=== PATIENT | female | born 1990 | race Two or more races ===

== ENCOUNTER 2018-02-09 19:36 | Emergency (ER) | payer OTHER ==
[2018-02-09 20:12] VITALS: BP 147/106; PULSE 73; TEMP 98.2; BMI 25.8
--- NOTE | 2018-02-09 20:19 | PDOC ---
Rapid Medical Evaluation Chief Complaint: [facility] Time Seen by Provider: 02/09/18 20:12 Medical Evaluation: Allergies Allergy/AdvReac Type Severity Reaction Status Date / Time No Known Allergies Allergy Verified 02/09/18 20:12 Vital Signs Temp Pulse Resp BP Pulse Ox 98.2 F 73 16 147/106 100 02/09/18 20:09 02/09/18 20:09 02/09/18 20:09 02/09/18 20:09 02/09/18 20:09 I have performed a brief in-person evaluation of this patient. The patient presents with a chief complaint of: here for a test. She did not take one at home. LMP was "sometime in December" Pertinent physical exam findings: none I have ordered the following: hcg Beta HCG - negative Patient given results and referral to [facility]. Pt instructed to return to the ER with any worsening or concerning symptoms. The patient verbalizes understanding of all instructions, has no further questions and is awaiting discharge. Discharge Disposition - Diagnosis test negative - Discharge Dispostion Disposition: HOME Condition at time of disposition: Good - Referrals Referrals: Annie Mohan [Primary Care Provider] - Hattie Ordaz MD [Staff Physician] - - Patient Instructions Additional Instructions: Discharge Instructions: -Your test was negative -Please follow up with Dr. Ordaz within 2 weeks for follow up - Post Discharge Activity
== END 2018-02-09 21:06 | disposition home or self-care (01) ==
LOC: JERFT 19:36
DX: Z32.02 Encounter for pregnancy test, result negative (principal)
CPT/HCPCS: 84703; 99281-25

== ENCOUNTER 2018-02-22 15:06 | Emergency (ER) | payer OTHER ==
[2018-02-22 15:15] VITALS: BP 165/96; PULSE 91; TEMP 98.6; BMI 26.6
--- NOTE | 2018-02-22 15:15 | PDOC ---
Rapid Medical Evaluation Time Seen by Provider: 02/22/18 15:10 Medical Evaluation: Allergies Allergy/AdvReac Type Severity Reaction Status Date / Time No Known Allergies Allergy Verified 02/09/18 20:12 02/22/18 15:11 I have performed a brief in-person evaluation of this patient. The patient presents with a chief complaint of: R pelvic w/ menses x 5 days ago , worse than usual menstrual cramps. . Currently off control after developed PE 3 months ago, no longer on AC per pt Pertinent physical exam findings:Stable w/ no sig ttp I have ordered the following:upreg/ua The patient will proceed to the ED for further evaluation 02/22/18 15:14 Discharge Disposition - Diagnosis Pelvic pain - Referrals - Patient Instructions - Post Discharge Activity
--- NOTE | 2018-02-22 15:50 | PDOC ---
History of Present Illness - General Chief Complaint: Pain Stated Complaint: RT SIDE PAIN Time Seen by Provider: 02/22/18 15:10 - History of Present Illness Initial Comments: 27-year-old female presents for evaluation of uterine cramping 2 days. She states she finished her period 2 days ago but she still begins to cramp. She has no comorbidities and takes no home medication. She has no other associated symptoms. 02/22/18 15:48 Past History - Past Medical History Allergies/Adverse Reactions: Allergies Allergy/AdvReac Type Severity Reaction Status Date / Time No Known Allergies Allergy Verified 02/22/18 15:12 Home Medications: Ambulatory Orders Nitrofurantoin Monohyd/M-Cryst [Macrobid -] 100 mg PO BID #14 capsule 02/22/18 Asthma: No Cancer: No Cardiac Disorders: No COPD: No Diabetes: No HTN: No Seizures: No Thyroid Disease: No Other medical history: pulmonary embolism - Reproductive History (#): 1 Para: 0 Therapeutic (s) & number: No Spontaneous : 0 - Immunization History Immunization Up to Date: Yes - Suicide/Smoking/Psychosocial Hx Smoking History: Former smoker Have you smoked in the past 12 months: Yes Number of Cigarettes Smoked Daily: 3 If you are a former smoker, when did you quit?: 5 months ago Information on smoking cessation initiated: No Hx Alcohol Use: No Drug/Substance Use Hx: No Substance Use Type: None Hx Substance Use Treatment: No Review of Systems - Review of Systems : Yes: See HPI All Other Systems: Reviewed and Negative *Physical Exam - Vital Signs Last Vital Signs Temp Pulse Resp BP Pulse Ox 98.6 F 91 H 18 165/96 98 02/22/18 15:12 02/22/18 15:12 02/22/18 15:12 02/22/18 15:12 02/22/18 15:12 - Physical Exam Comments: GENERAL: The patient is awake, alert, and fully oriented, in no acute distress. HEAD: Normal with no signs of trauma. NECK: Normal range of motion LUNGS: Breath sounds equal, clear to auscultation bilaterally. No wheezes, and no crackles. HEART: Regular rate and rhythm, normal S1 and S2 without murmur, rub or gallop. ABDOMEN: Soft, nontender, normoactive bowel sounds. No guarding, no rebound. No masses. EXTREMITIES: Normal range of motion, no edema. No clubbing or cyanosis. No cords, erythema, or tenderness. NEUROLOGICAL: Cranial nerves II through XII grossly intact. Normal speech, normal gait. PSYCH: Normal mood, normal affect. SKIN: Warm, Dry, normal turgor, no rashes or lesions noted. 02/22/18 15:49 Medical Decision Making - Medical Decision Making Urine is been ordered to rule out . Results are pending. 02/22/18 15:50 02/22/18 17:39 Patient appears to have a urinary tract infection give her prescription for Macrobid and she can follow-up with her primary care physician. She was not happy with these results. *DC/Admit/Observation/Transfer Diagnosis at time of Disposition: Pelvic pain, UTI (urinary tract infection) - Discharge Dispostion Disposition: HOME Condition at time of disposition: Stable Decision to Admit order: No - Prescriptions Prescriptions: Nitrofurantoin Monohyd/M-Cryst [Macrobid -] 100 mg PO BID #14 capsule - Referrals Referrals: Annie Mohan [Primary Care Provider] - - Patient Instructions Printed Discharge Instructions: Urinary Tract Infection Additional Instructions: Equally antibiotics as prescribed. Return to the emergency room if symptoms worsen or go unresolved. In the meantime follow-up with your primary care physician in next 1-2 days. - Post Discharge Activity
[2018-02-22 16:44] LABS: URINE APPEARANCE CLEAR; URINE BILIRUBIN NEGATIVE (<2.0 mg/dL); URINE BLOOD 2+ (NEGATIVE); URINE COLOR STRAW; URINE GLUCOSE (UA) NEGATIVE (NEGATIVE); URINE KETONE NEGATIVE (NEGATIVE); URINE NITRITE NEGATIVE (NEGATIVE); URINE PROTEIN NEGATIVE (NEGATIVE); URINE UROBILINOGEN NEGATIVE mg/dL (0.2-1.0)
[2018-02-22 16:50] LABS: URINE LEUK ESTERASE 2+ (NEGATIVE)
[2018-02-22 17:23] LABS: EPI CELLS RARE /HPF (FEW); URINE BACTERIA RARE /hpf (NONE SEEN)
[2018-02-22 17:35] LABS: HCG,QUALITATIVE URINE NEGATIVE
== END 2018-02-22 17:46 | disposition home or self-care (01) ==
LOC: JERFT 15:06
DX: R10.2 Pelvic and perineal pain (principal); Z87.891 Personal history of nicotine dependence
CPT/HCPCS: 81003; 81015; 84703; 99281-25

== ENCOUNTER 2018-07-02 12:39 | Emergency (ER) | payer OTHER ==
[2018-07-02 12:46] VITALS: BMI 28.7
--- NOTE | 2018-07-02 13:42 | PDOC ---
History of Present Illness - General Chief Complaint: Chest Pain Stated Complaint: CHEST PAIN Time Seen by Provider: 07/02/18 12:55 - History of Present Illness Initial Comments: 07/02/18 13:38 The patient is a 27 year old female, with a significant past medical history of anxiety and PE (Treated with Xarelto, finished in 02/2018), who presents to the ED complaining of chest pain for the past 2 days and shortness of breath. She describes her chest pain as a tightness sensation, ranging from mild to moderate , without radiation. She denies any modifying factors. She reports she recently saw her PCP for chest pain but did not receive any kind of treatment or testing. She never saw a roof mechanic for work up of her PE but states that she believes it was due to her IUD. The patient denies headache and dizziness. Denies fever, chills, nausea, vomiting, diarrhea or constipation. Denies dysuria, frequency, urgency and hematuria. Allergies: None Past surgical history: None reported Social History: Former smoker. Past History - Past Medical History Allergies/Adverse Reactions: Allergies Allergy/AdvReac Type Severity Reaction Status Date / Time No Known Allergies Allergy Verified 07/02/18 12:40 Home Medications: Ambulatory Orders Nitrofurantoin Monohyd/M-Cryst [Macrobid -] 100 mg PO BID #14 capsule 02/22/18 Asthma: No Cancer: No Cardiac Disorders: No COPD: No Diabetes: No HTN: No Seizures: No Thyroid Disease: No Other medical history: PE - Reproductive History (#): 1 Para: 0 Therapeutic (s) & number: No Spontaneous : 0 - Immunization History Immunization Up to Date: Yes - Suicide/Smoking/Psychosocial Hx Smoking History: Former smoker Have you smoked in the past 12 months: Yes Number of Cigarettes Smoked Daily: 3 If you are a former smoker, when did you quit?: 5 months ago Information on smoking cessation initiated: No Hx Alcohol Use: No Drug/Substance Use Hx: No Substance Use Type: None Hx Substance Use Treatment: No Review of Systems - Review of Systems Comments:: 07/02/18 13:40 "GENERAL/CONSTITUTIONAL: No fever or chills. No weakness. HEAD, EYES, EARS, NOSE AND THROAT: No change in vision. No ear pain or discharge. No sore throat. CARDIOVASCULAR: (+) chest pain and shortness of breath. No loss of consciousness RESPIRATORY: No cough, wheezing, or hemoptysis. GASTROINTESTINAL: No nausea, vomiting, diarrhea or constipation. GENITOURINARY: No dysuria, frequency, or change in urination. MUSCULOSKELETAL: No joint or muscle swelling or pain. No neck or back pain. SKIN: No rash NEUROLOGIC: No vertigo, no change in strength/sensation. ENDOCRINE: No increased thirst. No abnormal weight change. HEMATOLOGIC/LYMPHATIC: No anemia, easy bleeding, or history of blood clots. ALLERGIC/IMMUNOLOGIC: No hives or skin allergy. *Physical Exam - Vital Signs Last Vital Signs Temp Pulse Resp BP Pulse Ox 98.0 F 90 18 129/89 99 07/02/18 12:40 07/02/18 12:40 07/02/18 12:40 07/02/18 12:40 07/02/18 13:15 - Physical Exam Comments: 07/02/18 13:40 "GENERAL: Awake, alert, and fully oriented, in no acute distress. HEAD: No signs of trauma EYES: PERRLA, EOMI, sclera anicteric, conjunctiva clear ENT: Auricles normal inspection, hearing grossly normal, nares patent, oropharynx clear without exudates. Moist mucosa NECK: Nontender, no stepoffs, Normal ROM, supple, no lymphadenopathy, JVD, or masses LUNGS: Breath sounds equal, clear to auscultation bilaterally. No wheezes, and no crackles HEART: Regular rate and rhythm, normal S1 and S2, no murmurs, rubs or gallops ABDOMEN: Soft, nontender, normoactive bowel sounds. No guarding, no rebound. No masses EXTREMITIES: Normal range of motion, no edema. No clubbing or cyanosis. No cords, erythema, or tenderness NEUROLOGICAL: Cranial nerves II through XII intact. 5/5 strength and sensation in all extremities, Normal speech, normal gait, normal cerebellar function SKIN: Warm, Dry, normal turgor, no rashes or lesions noted. Heart Score/ECG Review - History History: Slightly suspicious - Electrocardiogram EKG: Normal - Age Age: </= 45 - Risk Factors Based on the list above the patient has:: No risk factors known - ECG Impressions Comment:: 07/02/18 13:40 NSR, no TOMMY/STDs, no TWIs, axis wnl, intervals wnl, rate 57 ED Treatment Course - LABORATORY CBC & Chemistry Diagram: 07/02/18 14:35 07/02/18 14:35 - ADDITIONAL ORDERS Additional order review: Laboratory Results 07/02/18 07/02/18 07/02/18 14:35 14:35 14:35 PT with INR 12.60 INR 1.07 PTT (Actin FS) 28.5 D-Dimer 236 Sodium 138 Potassium 3.7 Chloride 106 Carbon Dioxide 24 Anion Gap 7 L BUN 7 Creatinine 0.7 Creat Clearance w eGFR > 60 Random Glucose 91 Calcium 8.8 Total Bilirubin 0.6 AST 19 ALT 23 Alkaline Phosphatase 43 L Creatine Kinase 121 Troponin I < 0.02 Total Protein 7.5 Albumin 4.0 Urine Color Urine Appearance Urine pH Ur Specific Kay[place]e Urine Protein Urine Glucose (UA) Urine Ketones Urine Blood Urine Nitrite Urine Bilirubin Urine Urobilinogen Ur Leukocyte Esterase Urine HCG, Qual 07/02/18 14:00 PT with INR INR PTT (Actin FS) D-Dimer Sodium Potassium Chloride Carbon Dioxide Anion Gap BUN Creatinine Creat Clearance w eGFR Random Glucose Calcium Total Bilirubin AST ALT Alkaline Phosphatase Creatine Kinase Troponin I Total Protein Albumin Urine Color Ltyellow Urine Appearance Clear Urine pH 6.0 Ur Specific Kaycee 1.014 Urine Protein Negative Urine Glucose (UA) Negative Urine Ketones Negative Urine Blood Negative Urine Nitrite Negative Urine Bilirubin Negative Urine Urobilinogen Negative Ur Leukocyte Esterase Negative Urine HCG, Qual Negative 07/02/18 14:35 RBC 4.87 MCV 85.5 MCHC 33.1 RDW 12.6 MPV 8.0 Neutrophils % 53.5 D Lymphocytes % 35.4 D Monocytes % 8.8 Eosinophils % 1.6 Basophils % 0.7 - RADIOLOGY Radiology Studies Ordered: Category Date Time Status CHEST CTA [CT] Stat CT Scan 07/02/18 13:42 Completed Medical Decision Making - Medical Decision Making 07/02/18 13:41 27 F with h/o PE, now off AC, presenting with midsternal chest pain and SOB. Pt well appearing with normal vitals. Low suspicion for PE but will need to r/o given history. Lungs clear, no sign of wheezing/rales. - Labs - CTA chest 07/02/18 16:44 Labs wnl CTA negative for PE Pt reassessed - feels much better Pt is well appearing, with normal vitals. Clinically stable for DC at this time. I discussed the physical exam findings, ancillary test results and final diagnoses with the patient. I answered all of the patient's questions. The patient was satisfied with the care received and felt comfortable with the discharge plan and treatment plan. The patient agrees to follow up with the primary care physician within 24-72 hours. *DC/Admit/Observation/Transfer Diagnosis at time of Disposition: Chest pain - Discharge Dispostion Disposition: HOME - Referrals Referrals: Iris Pete MD [Primary Care Provider] - - Patient Instructions Printed Discharge Instructions: DI for Atypical Chest Pain Additional Instructions: Your CT scan and bloodwork were normal today. Your EKG was also normal. If you continue to have chest pain, shortness of breath, or any other concerning symptoms, return to the ER immediately. Otherwise, follow up with your primary doctor within 48 hours for further evaluation. - Post Discharge Activity - Attestations Physician Attestion: 07/02/18 16:46 I, Dr. Bradley Adams MD, attest that this document has been prepared under my direction and personally reviewed by me in its entirety. I further attest, that it accurately reflects all work, treatment, procedures and medical decision -making performed by me.
[2018-07-02 14:33] LABS: HCG,QUALITATIVE URINE Negative
[2018-07-02 14:38] LABS: URINE APPEARANCE CLEAR; URINE BILIRUBIN NEGATIVE (<2.0 mg/dL); URINE COLOR LTYELLOW; URINE GLUCOSE (UA) NEGATIVE (NEGATIVE); URINE KETONE NEGATIVE (NEGATIVE); URINE LEUK ESTERASE NEGATIVE (NEGATIVE); URINE NITRITE NEGATIVE (NEGATIVE); URINE PROTEIN NEGATIVE (NEGATIVE); URINE UROBILINOGEN NEGATIVE mg/dL (0.2-1.0)
[2018-07-02 14:48] LABS: BASO % 0.7 % (0-2.0); EOS % 1.6 % (0-4.5); HEMATOCRIT 41.6 % (32.4-45.2); HEMOGLOBIN 13.8 GM/dL (10.7-15.3); LYMPH % 35.4 % (8-40); MCH 28.3 pg (25.7-33.7); MCHC 33.1 g/dl (32.0-36.0); MEAN CELL VOLUME 85.5 fl (80-96); MONO % 8.8 % (3.8-10.2); NEUT % 53.5 % (42.8-82.8); PLATELET COUNT 311 K/MM3 (134-434); RBC 4.87 M/mm3 (3.60-5.2); RDW 12.6 % (11.6-15.6); WHITE BLOOD COUNT 6.4 K/mm3 (4.0-10.0)
[2018-07-02 15:01] LABS: INR 1.07 (0.83-1.09); PROTHROMBIN TIME (PATIENT) 12.6 SEC (9.7-13.0)
[2018-07-02 15:04] LABS: ACTIVATED PTT 28.5 SECONDS (25.2-36.5)
[2018-07-02 15:08] LABS: ALK PHOS 43 U/L (45-117); ANION GAP 7 MMOL/L (8-16); BILIRUBIN,TOTAL 0.6 mg/dL (0.2-1); BLOOD UREA NITROGEN 7 mg/dL (7-18); CALCIUM 8.8 mg/dL (8.5-10.1); CHLORIDE 106 mmol/L (98-107); CO2 24 mmol/L (21-32); CREATININE 0.7 mg/dL (0.55-1.3); GLUCOSE,RANDOM 91 mg/dL (74-106); POTASSIUM 3.7 mmol/L (3.5-5.1); SGOT/AST 19 U/L (15-37); SGPT/ALT 23 U/L (13-61); SODIUM 138 mmol/L (136-145); TOT PROT 7.5 g/dl (6.4-8.2)
[2018-07-02] MEDS ORDERED: SODIUM CHLORIDE 1,000 ML IV STA (15:10)
[2018-07-02 17:34] VITALS: BP 136/75; PULSE 62; TEMP 98.4
--- NOTE | 2018-07-03 21:30 | EKG ---
Test Reason : Blood Pressure : / mmHG Vent. Rate : 057 BPM Atrial Rate : 057 BPM P-R Int : 148 ms QRS Dur : 104 ms QT Int : 424 ms P-R-T Axes : 045 063 043 degrees QTc Int : 412 ms SINUS BRADYCARDIA OTHERWISE NORMAL ECG NO PREVIOUS ECGS AVAILABLE Confirmed by ALBER VILLALOBOS MD ([id number]) on 07/03/2018 9:30:26 PM Referred By: Confirmed By:ALBER VILLALOBOS MD
== END 2018-07-02 17:34 | disposition home or self-care (01) ==
LOC: JER 12:39
PROC: 3E0337Z Introduction of Electrolytic and Water Balance Substance into Peripheral Vein, Percutaneous Approach (ICD-10-PCS; principal; 2018-07-02)
DX: R07.9 Chest pain, unspecified (principal); Z86.711 Personal history of pulmonary embolism; F41.9 Anxiety disorder, unspecified
CPT/HCPCS: 36415; 71275-TC; 80053; 81003; 82550; 84484; 84703; 85025; 85379; 85610; 85730; 93005; 93010; 96360; 99282-25

== ENCOUNTER 2020-12-26 19:35 | Emergency (ER) | payer OTHER ==
[2020-12-26 19:55] VITALS: BP 129/72; PULSE 83; TEMP 98; BMI 37.1
[2020-12-26] MEDS ORDERED: KETOROLAC TROMETHAMINE 30 MG/1 ML VIAL IM ONE (20:39)
[2020-12-26] MEDS ORDERED: KETOROLAC TROMETHAMINE 30 MG/1 ML VIAL ONE (20:44)
== END 2020-12-26 21:00 | disposition home or self-care (01) ==
LOC: JERFT 19:35
PROC: 3E0233Z Introduction of Anti-inflammatory into Muscle, Percutaneous Approach (ICD-10-PCS; principal; 2020-12-26)
DX: L66.4 Folliculitis ulerythematosa reticulata (principal)
CPT/HCPCS: 99284-25

== ENCOUNTER 2021-06-11 08:52 | Emergency (ER) | payer OTHER ==
[2021-06-11 09:06] VITALS: BP 158/90; PULSE 104; TEMP 99.2; BMI 35.5
[2021-06-11 11:58] LABS: BASO % 0.9 % (0-2.0); EOS % 6.2 % (0-4.5); HEMATOCRIT 42.4 % (32.4-45.2); HEMOGLOBIN 14.2 GM/dL (10.7-15.3); LYMPH % 14.2 % (8-40); MCH 28.1 pg (25.7-33.7); MCHC 33.6 g/dl (32.0-36.0); MEAN CELL VOLUME 83.9 fl (80-96); MEAN PLT VOLUME 7.7 fl (7.5-11.1); MONO % 6.9 % (3.8-10.2); NEUT % 71.8 % (42.8-82.8); PLATELET COUNT 328 10^3/uL (134-434); RBC 5.06 M/mm3 (3.60-5.2); RDW 12.6 % (11.6-15.6); WHITE BLOOD COUNT 11.6 K/mm3 (4.0-10.0)
[2021-06-11 12:21] LABS: CHLORIDE 104 mmol/L (98-107); SODIUM 137 mmol/L (136-145)
[2021-06-11 12:22] LABS: CALCIUM 8.9 mg/dL (8.5-10.1)
[2021-06-11 12:23] LABS: ALBUMIN 3.9 g/dl (3.4-5.0); ANION GAP 9 MMOL/L (8-16); BLOOD UREA NITROGEN 6.3 mg/dL (7-18); CO2 25 mmol/L (21-32); GLUCOSE,RANDOM 93 mg/dL (74-106)
[2021-06-11 12:25] LABS: SGPT/ALT 69 U/L (13-61)
[2021-06-11 12:26] LABS: CREATININE 0.7 mg/dL (0.55-1.3); SGOT/AST 41 U/L (15-37)
[2021-06-11 12:27] LABS: TOT PROT 7.8 g/dl (6.4-8.2)
[2021-06-11 12:28] LABS: BILIRUBIN,TOTAL 0.3 mg/dL (0.2-1)
[2021-06-11 12:29] LABS: ALK PHOS 77 U/L (45-117)
== END 2021-06-11 13:49 | disposition home or self-care (01) ==
LOC: JER 08:52
DX: R05 Cough (principal); Z11.52 Encounter for screening for COVID-19
CPT/HCPCS: 36415; 71046-TC-FY; 80053; 84484; 85025; 85379; 93005; 93010; 99285-25; C9803; U0003; U0005

== ENCOUNTER 2022-01-08 13:50 | Emergency (ER) | payer OTHER ==
[2022-01-08 13:57] VITALS: BP 146/65; PULSE 74; TEMP 98.3; BMI 35.5
[2022-01-08 16:09] LABS: BASO % 0.7 % (0-2.0); HEMATOCRIT 43.7 % (32.4-45.2); HEMOGLOBIN 14.5 GM/dL (10.7-15.3); LYMPH % 29.1 % (8-40); MCHC 33.2 g/dl (32.0-36.0); MEAN CELL VOLUME 84.2 fl (80-96); MEAN PLT VOLUME 7.9 fl (7.5-11.1); NEUT % 61.2 % (42.8-82.8); PLATELET COUNT 348 10^3/uL (134-434); RDW 13.2 % (11.6-15.6); WHITE BLOOD COUNT 9.2 K/mm3 (4.0-10.0)
[2022-01-08 16:48] LABS: CHLORIDE 105 mmol/L (98-107); SODIUM 138 mmol/L (136-145)
[2022-01-08 16:50] LABS: CALCIUM 9.5 mg/dL (8.5-10.1)
[2022-01-08 16:51] LABS: ALBUMIN 4.2 g/dl (3.4-5.0); ANION GAP 5 MMOL/L (8-16); BLOOD UREA NITROGEN 9.1 mg/dL (7-18); CO2 27 mmol/L (21-32); GLUCOSE,RANDOM 85 mg/dL (74-106)
[2022-01-08 16:54] LABS: CREATININE 0.6 mg/dL (0.55-1.3); SGOT/AST 31 U/L (15-37); SGPT/ALT 52 U/L (13-61)
[2022-01-08 16:55] LABS: BILIRUBIN,TOTAL 0.2 mg/dL (0.2-1); TOT PROT 8.1 g/dl (6.4-8.2)
[2022-01-08 16:57] LABS: ALK PHOS 69 U/L (45-117)
[2022-01-08] MEDS ORDERED: KETOROLAC TROMETHAMINE 30 MG/1 ML VIAL IM ONE (18:02)
[2022-01-08] MEDS ORDERED: LIDOCAINE 5% TOPICAL PATCH TP ONE (18:02)
[2022-01-08] MEDS ORDERED: LIDOCAINE 5% TOPICAL PATCH ONE ×2 (18:14→18:17)
[2022-01-08] MEDS ORDERED: KETOROLAC TROMETHAMINE 30 MG/1 ML VIAL ONE (18:14)
[2022-01-08] MEDS ORDERED: LIDOCAINE PATCH REMOVAL MC SCH (22:00)
== END 2022-01-08 18:45 | disposition home or self-care (01) ==
LOC: JER 13:50
PROC: 3E023GC Introduction of Other Therapeutic Substance into Muscle, Percutaneous Approach (ICD-10-PCS; principal; 2022-01-08)
DX: M79.602 Pain in left arm (principal)
CPT/HCPCS: 36415; 71046-TC-FY; 80053; 84484; 84703; 85025; 85379; 93005; 93010; 99285-25

== ENCOUNTER 2022-03-07 15:33 | Emergency (ER) | payer OTHER ==
[2022-03-07 15:47] VITALS: BP 129/75; PULSE 93; TEMP 97; BMI 38.7
[2022-03-07] MEDS ORDERED: IBUPROFEN 600 MG TABLET (FP) PO ONE ×2 (17:12→17:27)
== END 2022-03-07 19:05 | disposition home or self-care (01) ==
LOC: JERFT 15:33 → JER 15:33 → JERFT 19:05
DX: M79.671 Pain in right foot (principal)
CPT/HCPCS: 73630-TC-RT-FY; 99283-25

== ENCOUNTER 2022-05-29 14:36 | Emergency (ER) | payer OTHER ==
[2022-05-29 14:47] VITALS: BP 152/81; PULSE 96; RESP 20; TEMP 98.1; BMI 37.1
[2022-05-29] MEDS ORDERED: ACETAMINOPHEN INJECTION 100 ML IVPB ONE (16:29)
[2022-05-29] MEDS ORDERED: ACETAMINOPHEN 1000 MG/100 ML BAG IVPB ONE (16:30)
[2022-05-29 16:32] LABS: BASO % 0.7 % (0-2.0); EOS % 3.1 % (0-4.5); HEMOGLOBIN 14.1 GM/dL (10.7-15.3); LYMPH % 26.1 % (8-40); MCHC 33.5 g/dl (32.0-36.0); MEAN CELL VOLUME 83.7 fl (80-96); MEAN PLT VOLUME 7.7 fl (7.5-11.1); MONO % 7.2 % (3.8-10.2); NEUT % 62.9 % (42.8-82.8); PLATELET COUNT 356 10^3/uL (134-434); RBC 5.01 M/mm3 (3.60-5.2); RDW 12.9 % (11.6-15.6); WHITE BLOOD COUNT 8.2 K/mm3 (4.0-10.0)
[2022-05-29 16:36] LABS: HCG,QUALITATIVE URINE Negative
[2022-05-29 16:37] LABS: EPI CELLS 13 /uL (0-25.1); HYALINE CASTS 0 /uL (0-3.1); PH,URINE 6.5 (5.0-8.0); URINE APPEARANCE CLEAR; URINE BACTERIA 168 /uL (0-1359); URINE BILIRUBIN NEGATIVE (NEGATIVE); URINE COLOR YELLOW; URINE GLUCOSE (UA) NEGATIVE (NEGATIVE); URINE KETONE NEGATIVE (NEGATIVE); URINE LEUK ESTERASE 1+ (NEGATIVE); URINE NITRITE NEGATIVE (NEGATIVE); URINE PROTEIN NEGATIVE (NEGATIVE); URINE RBC 20 /uL (0-23.9); URINE UROBILINOGEN 0.2 mg/dL (0.2-1.0); URINE WBC 25 /uL (0-25.8)
[2022-05-29 17:16] LABS: ALBUMIN 3.4 g/dl (3.4-5.0); BLOOD UREA NITROGEN 7.6 mg/dL (7-18)
[2022-05-29 17:19] LABS: BILIRUBIN,TOTAL 0.2 mg/dL (0.2-1); CREATININE 0.6 mg/dL (0.55-1.3); TOT PROT 6.5 g/dl (6.4-8.2)
== END 2022-05-29 19:18 | disposition home or self-care (01) ==
LOC: JER 14:36
PROC: 3E033GC Introduction of Other Therapeutic Substance into Peripheral Vein, Percutaneous Approach (ICD-10-PCS; principal; 2022-05-29)
DX: R10.30 Lower abdominal pain, unspecified (principal)
CPT/HCPCS: 36415; 76856-TC; 80053; 81003; 84703; 85025; 87086; 99284-25

== ENCOUNTER 2022-07-28 19:50 | Emergency (ER) | payer OTHER ==
[2022-07-28 19:55] VITALS: BP 120/65; PULSE 58; RESP 20; TEMP 98; BMI 37.1
[2022-07-28] MEDS ORDERED: predniSONE 20 MG TABLET (UD) PO ONE (20:22)
[2022-07-28] MEDS ORDERED: ALBUTEROL SO4 2.5/IPRATROPIUM 0.5 INH SOL 3 ML VIAL.NEB. NEB ONE ×2 (20:22→20:23)
[2022-07-28] MEDS ORDERED: predniSONE 20 MG TABLET (UD) ONE (20:23)
[2022-07-28] MEDS ORDERED: ALBUTEROL SO4 HFA INHALER IH ONE ×2 (20:57)
== END 2022-07-28 21:18 | disposition home or self-care (01) ==
LOC: JER 19:50
PROC: 3E0F7GC Introduction of Other Therapeutic Substance into Respiratory Tract, Via Natural or Artificial Opening (ICD-10-PCS; principal; 2022-07-28)
DX: J20.9 Acute bronchitis, unspecified (principal)
CPT/HCPCS: 0241U-QW; 71046-TC-FY; 99284-25

== ENCOUNTER 2022-09-28 16:26 | Emergency (ER) | payer OTHER ==
[2022-09-28 17:04] VITALS: BP 113/72; PULSE 63; RESP 20; TEMP 98.2; BMI 37.1
[2022-09-28] MEDS ORDERED: ACETAMINOPHEN 325 MG TABLET (FP) PO ONE (17:10)
[2022-09-28] MEDS ORDERED: ACETAMINOPHEN 325 MG TABLET (FP) ONE (17:20)
== END 2022-09-28 17:59 | disposition home or self-care (01) ==
LOC: JER 16:26
DX: J06.9 Acute upper respiratory infection, unspecified (principal)
CPT/HCPCS: 0241U-QW; 99283-25

== ENCOUNTER 2023-01-28 22:10 | Emergency (ER) | payer OTHER ==
[2023-01-28 22:18] VITALS: BP 160/85; PULSE 105; RESP 18; TEMP 100.7; BMI 37.1
[2023-01-28] MEDS ORDERED: IBUPROFEN 600 MG TABLET (FP) PO ONE ×2 (22:54→23:07)
[2023-01-29] MEDS ORDERED: PENICILLIN G BENZATHINE 1,200,000 UNIT/2 ML PFS IM ONE ×2 (00:31→00:34)
[2023-01-29 00:32] LABS: EPI CELLS 9 /uL (0-25.1); HYALINE CASTS 0 /uL (0-3.1); PH,URINE 5.5 (5.0-8.0); URINE APPEARANCE CLEAR; URINE BACTERIA 212 /uL (0-1359); URINE BILIRUBIN NEGATIVE (NEGATIVE); URINE COLOR YELLOW; URINE GLUCOSE (UA) NEGATIVE (NEGATIVE); URINE KETONE NEGATIVE (NEGATIVE); URINE LEUK ESTERASE NEGATIVE (NEGATIVE); URINE NITRITE NEGATIVE (NEGATIVE); URINE PROTEIN NEGATIVE (NEGATIVE); URINE RBC 48 /uL (0-23.9); URINE UROBILINOGEN 0.2 mg/dL (0.2-1.0); URINE WBC 23 /uL (0-25.8)
[2023-01-29 00:45] LABS: HCG,QUALITATIVE URINE Negative
== END 2023-01-29 00:59 | disposition home or self-care (01) ==
LOC: JER 22:10
DX: R50.9 Fever, unspecified (principal); J02.0 Streptococcal pharyngitis; R51.9 Headache, unspecified; Z20.822 Contact with and (suspected) exposure to COVID-19
CPT/HCPCS: 0241U-QW; 81003; 84703; 87651; 99284-25

== ENCOUNTER 2023-11-26 11:56 | Emergency (ER) | payer OTHER ==
[2023-11-26 12:06] VITALS: BP 139/73; PULSE 73; RESP 16; TEMP 98.7; BMI 37.1
[2023-11-26 13:03] LABS: BASO % 0.9 % (0-2.0); HEMATOCRIT 40.5 % (32.4-45.2); HEMOGLOBIN 13.3 GM/dL (10.7-15.3); LYMPH % 19.2 % (8-40); MCH 27.6 pg (25.7-33.7); MCHC 32.8 g/dl (32.0-36.0); MEAN CELL VOLUME 84.1 fl (80-96); MEAN PLT VOLUME 7.6 fl (7.5-11.1); MONO % 7.4 % (3.8-10.2); NEUT % 70.5 % (42.8-82.8); PLATELET COUNT 390 10^3/uL (134-434); RBC 4.82 M/mm3 (3.60-5.2); RDW 12.4 % (11.6-15.6); WHITE BLOOD COUNT 10.5 K/mm3 (4.0-10.0)
[2023-11-26 13:07] LABS: HCG,QUALITATIVE URINE Positive
[2023-11-26 13:10] LABS: PH,URINE 7.5 (5.0-8.0); URINE APPEARANCE CLEAR; URINE BILIRUBIN NEGATIVE (NEGATIVE); URINE COLOR DK YELLOW; URINE GLUCOSE (UA) NEGATIVE (NEGATIVE); URINE KETONE TRACE (NEGATIVE); URINE LEUK ESTERASE NEGATIVE (NEGATIVE); URINE NITRITE NEGATIVE (NEGATIVE); URINE PROTEIN TRACE (NEGATIVE)
[2023-11-26 13:44] LABS: POTASSIUM 3.9 mmol/L (3.5-5.1)
[2023-11-26 13:46] LABS: CALCIUM 8.8 mg/dL (8.5-10.1)
[2023-11-26 13:47] LABS: ALBUMIN 3.4 g/dl (3.4-5.0); BLOOD UREA NITROGEN 7.4 mg/dL (7-18)
[2023-11-26 13:51] LABS: BILIRUBIN,TOTAL 0.3 mg/dL (0.2-1)
[2023-11-26 13:52] LABS: TOT PROT 7.1 g/dl (6.4-8.2)
[2023-11-26 14:15] LABS: CREATININE 0.6 mg/dL (0.55-1.3)
== END 2023-11-26 17:09 | disposition home or self-care (01) ==
LOC: JER 11:56
DX: O26.891 Other specified pregnancy related conditions, first trimester (principal); R10.30 Lower abdominal pain, unspecified; R30.0 Dysuria; N89.9 Noninflammatory disorder of vagina, unspecified; Z3A.01 Less than 8 weeks gestation of pregnancy
CPT/HCPCS: 36415; 76817-TC; 80053; 81003; 84702; 84703; 85025; 87086; 99284-25

== ENCOUNTER 2024-01-13 16:59 | Emergency (ER) | payer OTHER ==
[2024-01-13 17:04] VITALS: BP 142/74; PULSE 97; RESP 18; TEMP 98; BMI 37.1
[2024-01-13] MEDS: SODIUM CHLORIDE 1,000 ML IV STA (17:58)
[2024-01-13 18:06] LABS: URINE APPEARANCE CLEAR; URINE BILIRUBIN NEGATIVE (NEGATIVE); URINE COLOR DK YELLOW; URINE GLUCOSE (UA) NEGATIVE (NEGATIVE); URINE KETONE TRACE (NEGATIVE); URINE LEUK ESTERASE NEGATIVE (NEGATIVE); URINE NITRITE NEGATIVE (NEGATIVE); URINE PROTEIN TRACE (NEGATIVE)
[2024-01-13 18:08] LABS: BASO % 0.8 % (0-2.0); EOS % 1.9 % (0-4.5); HEMOGLOBIN 11.7 GM/dL (10.7-15.3); LYMPH % 19.4 % (8-40); MCH 26.8 pg (25.7-33.7); MCHC 32.6 g/dl (32.0-36.0); MEAN CELL VOLUME 82.2 fl (80-96); MEAN PLT VOLUME 7.6 fl (7.5-11.1); MONO % 6.9 % (3.8-10.2); PLATELET COUNT 351 10^3/uL (134-434); RBC 4.38 M/mm3 (3.60-5.2); WHITE BLOOD COUNT 11.6 K/mm3 (4.0-10.0)
[2024-01-13 18:15] LABS: INR 0.98 (0.83-1.09); PROTHROMBIN TIME (PATIENT) 11.1 SEC (9.7-13.0)
[2024-01-13 18:18] LABS: ACTIVATED PTT 27.8 SECONDS (25.2-36.5)
[2024-01-13 18:27] LABS: POTASSIUM 3.4 mmol/L (3.5-5.1)
[2024-01-13 18:29] LABS: BLOOD UREA NITROGEN 5.5 mg/dL (7-18); CALCIUM 8.8 mg/dL (8.5-10.1)
[2024-01-13 18:32] LABS: CREATININE 0.5 mg/dL (0.55-1.3)
[2024-01-13] MEDS ORDERED: KCL 20 MEQ PREMIX BAG 20 MEQ/100 ML INFUS.BAG IVPB ONE (18:32)
[2024-01-13 18:34] LABS: BILIRUBIN,TOTAL 0.2 mg/dL (0.2-1); TOT PROT 6.4 g/dl (6.4-8.2)
[2024-01-13] MEDS ORDERED: POTASSIUM CHLORIDE ORAL LIQUID 20 MEQ/15 ML ONE (19:53)
[2024-01-13] MEDS: POTASSIUM CHLORIDE ORAL LIQUID 20 MEQ/15 ML PO ONE (19:59)
== END 2024-01-13 20:00 | disposition home or self-care (01) ==
LOC: JER 16:59
PROC: 3E0337Z Introduction of Electrolytic and Water Balance Substance into Peripheral Vein, Percutaneous Approach (ICD-10-PCS; principal; 2024-01-13)
DX: O99.891 Other specified diseases and conditions complicating pregnancy (principal); R07.89 Other chest pain; R06.02 Shortness of breath; Z3A.15 15 weeks gestation of pregnancy; O13.9 Gestational [pregnancy-induced] hypertension without significant proteinuria, unspecified trimester
CPT/HCPCS: 36415; 80053; 81003; 84484; 84702; 85025; 85379; 85610; 85730; 87086; 93005; 93010; 99284-25

== ENCOUNTER 2024-02-06 13:57 | Emergency (ER) | payer OTHER ==
[2024-02-06 14:20] VITALS: BP 135/60; PULSE 86; RESP 18; TEMP 99.2; BMI 37.1
== END 2024-02-06 16:26 | disposition home or self-care (01) ==
LOC: JER 13:57
DX: O99.891 Other specified diseases and conditions complicating pregnancy (principal); R03.0 Elevated blood-pressure reading, without diagnosis of hypertension; R51.9 Headache, unspecified; R53.83 Other fatigue; Z3A.18 18 weeks gestation of pregnancy
CPT/HCPCS: 93005; 93010; 99283-25

== ENCOUNTER 2024-03-13 20:13 | Emergency (ER) | payer OTHER ==
[2024-03-13 20:21] VITALS: BP 131/56; PULSE 79; RESP 16; TEMP 98.3; BMI 37.1
[2024-03-13 21:42] LABS: BASO % 0.5 % (0-2.0); HEMATOCRIT 34.2 % (32.4-45.2); HEMOGLOBIN 11.4 GM/dL (10.7-15.3); LYMPH % 20.2 % (8-40); MCH 27.1 pg (25.7-33.7); MCHC 33.3 g/dl (32.0-36.0); MEAN CELL VOLUME 81.3 fl (80-96); MEAN PLT VOLUME 7.5 fl (7.5-11.1); MONO % 7.6 % (3.8-10.2); NEUT % 68.7 % (42.8-82.8); PLATELET COUNT 360 10^3/uL (134-434); RDW 13.1 % (11.6-15.6); WHITE BLOOD COUNT 12.2 K/mm3 (4.0-10.0)
[2024-03-13 22:02] LABS: POTASSIUM 3.8 mmol/L (3.5-5.1)
[2024-03-13 22:04] LABS: CALCIUM 8.5 mg/dL (8.5-10.1)
[2024-03-13 22:05] LABS: BLOOD UREA NITROGEN 4.1 mg/dL (7-18)
[2024-03-13 22:08] LABS: CREATININE 0.4 mg/dL (0.55-1.3)
[2024-03-13 22:09] LABS: BILIRUBIN,TOTAL 0.2 mg/dL (0.2-1); TOT PROT 6.7 g/dl (6.4-8.2)
== END 2024-03-13 23:52 | disposition home or self-care (01) ==
LOC: JER 20:13
DX: O26.892 Other specified pregnancy related conditions, second trimester (principal); N64.4 Mastodynia; R07.9 Chest pain, unspecified; Z3A.24 24 weeks gestation of pregnancy
CPT/HCPCS: 36415; 80053; 84484; 85025; 93005; 93010; 99284-25